=== PATIENT | male | born 1985 | race African-American/Black ===

== ENCOUNTER 2017-07-01 21:23 | Emergency (ER) | payer OTHER ==
[2017-07-01] MEDS ORDERED: Albuterol/Ipratropium 3.0-0.5 MG/3 ML Neb Soln NEB ONE (21:40)
--- NOTE | 2017-07-01 21:44 | EDM.PDOC ---
ED HPI GENERAL MEDICAL PROBLEM - General Chief Complaint: Respiratory Problem Stated Complaint: TROUBLE BREATHING/COUGH Time Seen by Provider: 07/01/17 21:31 - History of Present Illness INITIAL COMMENTS - FREE TEXT/NARRATIVE: HISTORY AND PHYSICAL: History of present illness: The patient is a 32-year-old male with no stated medical history who presents with complaints of being "sick" which involved vomiting and abdominal complaints which has subsided but occurred last week and 2 days of a dry cough that initially felt like there was mucus and congestion but now seems more dry and hacky. The patient says he has not had fevers or sore throat no runny nose or sinus congestion. He is now currently eating and drinking normally without abdominal complaints. He says his mouth feels dry from the coughing. He is a smoker of half a pack of tobacco a day but no drug use. He has no discrete chest pain and he did not get his flu shot this year. Review of systems: As per history of present illness and below otherwise all systems reviewed and negative. Past medical history: As per history of present illness and as reviewed below otherwise noncontributory. Surgical history: As per history of present illness and as reviewed below otherwise noncontributory. Social history: No reported history of drug or alcohol abuse. Family history: As per history of present illness and as reviewed below otherwise noncontributory. Physical exam: Gen.: Well-developed well-nourished man who is nontoxic and speaking without breathlessness. Vital signs have been reviewed by me HEENT: Atraumatic, normocephalic, pupils reactive, negative for conjunctival pallor or scleral icterus, mucous membranes moist, throat clear, neck supple, nontender, trachea midline. There is no cervical adenopathy or nuchal rigidity Lungs: Clear to auscultation there is no wheezing stridor or work of breathing, breath sounds equal bilaterally, chest nontender. Heart: S1S2, regular rate and rhythm no overt murmurs Abdomen: Soft, nondistended, nontender. NABS Pelvis: Deferred Genitourinary: Deferred. Rectal: Deferred. Extremities: Atraumatic, negative for cords or calf pain. Neurovascular unremarkable. Neuro: Awake, alert, oriented. Cranial nerves II through XII unremarkable. Cerebellum unremarkable. Motor and sensory unremarkable throughout. Exam nonfocal. Skin: Normal turgor no evidence of any diaphoresis or overt rashes or lesions Diagnostics: Influenza chest x-ray Therapeutics: Duo neb, spacer, spacer teaching Impression: acute Bronchitis Definitive disposition and diagnosis as appropriate pending reevaluation and review of above. chest area Pain Score (Numeric/FACES): 7 - Related Data Allergies Allergy/AdvReac Type Severity Reaction Status Date / Time No Known Allergies Allergy Verified 07/01/17 21:33 Home Meds: Home Meds . [No Known Home Meds] 09/19/15 [History] Past Medical History HEENT History: Reports: None Cardiovascular History: Reports: None Respiratory History: Reports: None Gastrointestinal History: Reports: None Genitourinary History: Reports: None Musculoskeletal History: Reports: None Neurological History: Reports: None Psychiatric History: Reports: None Endocrine/Metabolic History: Reports: None Hematologic History: Reports: None Immunologic History: Reports: None Oncologic (Cancer) History: Reports: None Dermatologic History: Reports: None - Infectious Disease History Infectious Disease History: Reports: None - Past Surgical History HEENT Surgical History: Reports: None Cardiovascular Surgical History: Reports: None Male Surgical History: Reports: None Musculoskeletal Surgical History: Reports: None Social & Family History - Family History Family Medical History: Noncontributory Cardiac: Reports: Hypertension Endocrine/Metabolic: Reports: Diabetes, type II - Tobacco Use Smoking Status *Q: Current Every Day Smoker Years of Tobacco use: 20 Packs/Tins Daily: 0.5 - Caffeine Use Caffeine Use: Reports: Tea - Recreational Drug Use Recreational Drug Use: Yes Drug Use in Last 12 Months: Yes Recreational Drug Type: Reports: Marijuana/Hashish Recreational Drug Use Frequency: Monthly ED ROS GENERAL - Review of Systems Review Of Systems: ROS reveals no pertinent complaints other than HPI. ED EXAM, GENERAL - Physical Exam Exam: See Below (See dictation) Course - Vital Signs Last Recorded V/S: Last Vital Signs Temp 36.9 C 07/01/17 21:33 Pulse 95 07/01/17 21:33 Resp 18 07/01/17 21:33 BP 124/86 07/01/17 21:33 Pulse Ox 95 07/01/17 21:33 - Orders/Labs/Meds Orders: Active Orders 24 hr Category Date Time Status RT Aerosol Therapy [RC] ASDIRECTED Care 07/01/17 21:40 Active Chest 2V [CR] Stat Exams 07/01/17 21:40 Taken Meds: Medications Discontinued Medications Generic Name Dose Route Start Last Admin Trade Name Talia PRN Reason Stop Dose Admin Albuterol/Ipratropium 3 ml 07/01/17 21:40 07/01/17 21:49 Duoneb 3.0-0.5 Mg/3 Ml NEB 07/01/17 21:41 3 ml ONETIME ONE Administration Departure - Departure Time of Disposition: 23:16 Disposition: Home, Self-Care 01 Condition: Good Clinical Impression: Bronchitis - Discharge Information Referrals: PCP,None [Primary Care Provider] - Forms: ED Department Discharge Additional Instructions: The following information is given to patients seen in the emergency department who are being discharged to home. This information is to outline your options for follow-up care. We provide all patients seen in our emergency department with a follow-up referral. The need for follow-up, as well as the timing and circumstances, are variable depending upon the specifics of your emergency department visit. If you don't have a primary care physician on staff, we will provide you with a referral. We always advise you to contact your personal physician following an emergency department visit to inform them of the circumstance of the visit and for follow-up with them and/or the need for any referrals to a consulting specialist. The emergency department will also refer you to a specialist when appropriate. This referral assures that you have the opportunity for followup care with a specialist. All of these measure are taken in an effort to provide you with optimal care, which includes your followup. Under all circumstances we always encourage you to contact your private physician who remains a resource for coordinating your care. When calling for followup care, please make the office aware that this follow-up is from your recent emergency room visit. If for any reason you are refused follow-up, please contact the [facility] emergency department at and ask to speak to the emergency department charge nurse. [facility] Primary care- Internal Medicine and Family [address] [address] Push hydration with Gatorade and water and juices and try to avoid caffeinated products. Please try to reduce or stop tobacco use. Use all medications as prescribed and please contact one of our clinic physicians or your provider in the next few days for follow-up care and reevaluation. Return to ER as needed and as discussed - My Orders Last 24 Hours: My Active Orders 07/01/17 21:40 RT Aerosol Therapy [RC] ASDIRECTED Chest 2V [CR] Stat - Assessment/Plan Last 24 Hours: My Active Orders 07/01/17 21:40 RT Aerosol Therapy [RC] ASDIRECTED Chest 2V [CR] Stat
[2017-07-02 00:20] VITALS: BP 128/80
--- NOTE | 2017-07-03 10:53 | CR ---
EXAM DATE: 07/01/17 PATIENT'S AGE: 32 Patient: LEATHA DOLAN Facility: [place], [place] Site . Site : 1985 Study: XRay Chest [id number]/6/2018 10:32:30 PM Ordering Physician: Jesus Bustos Final Report: INDICATION: Chest pain, shortness of breath. TECHNIQUE: Chest radiograph 2 views COMPARISON: None FINDINGS: Cardiovascular and mediastinum: The heart silhouette is normal in size and morphology. The mediastinum is normal in appearance. Lungs and pleural spaces: Both lungs are unremarkable in appearance. No sign of pleural effusion seen. No pneumothorax is identified. Bones and soft tissues: No significant findings. IMPRESSION: 1. No acute cardiopulmonary disease is seen. Dictated by Bart Zelaya MD @ 07/01/2017 11:02:28 PM Dictated by: Bart Zelaya MD @ 07/01/2017 23:02:33 (Electronic Signature) Report Signed by Proxy. STEVEN
== END 2017-07-01 23:30 | disposition home or self-care (01) ==
LOC: MW.ED 21:23
DX: J20.9 Acute bronchitis, unspecified (principal); F17.210 Nicotine dependence, cigarettes, uncomplicated
CPT/HCPCS: 71046; 71046-26; 87804; 94640; 99284; 99285-25

== ENCOUNTER 2017-12-07 14:36 | Emergency (ER) | payer OTHER ==
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
--- NOTE | 2017-12-07 15:50 | CR ---
EXAMINATION: Right shoulder HISTORY: Pain COMPARISON: None TECHNIQUE: 3 views FINDINGS: Moderate acromioclavicular osteoarthritic changes are noted. Bone mineralization and joint spaces appear preserved. No fracture or acute osseous abnormality. IMPRESSION: Acromioclavicular osteoarthritic changes without acute osseous abnormality.
[2017-12-07 16:37] VITALS: BP 127/86
== END 2017-12-07 16:34 | disposition home or self-care (01) ==
LOC: MW.ED 14:36
DX: S49.91XA Unspecified injury of right shoulder and upper arm, initial encounter (principal); E11.9 Type 2 diabetes mellitus without complications; F17.210 Nicotine dependence, cigarettes, uncomplicated; X50.9XXA Other and unspecified overexertion or strenuous movements or postures, initial encounter
CPT/HCPCS: 73030-26-RT; 73030-RT; 99283

== ENCOUNTER 2018-07-08 15:41 | Emergency (ER) | payer OTHER ==
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
[2018-07-08 17:03] VITALS: BP 146/101
--- NOTE | 2018-07-09 20:24 | CR ---
EXAM DATE: 07/08/18 PATIENT'S AGE: 33 Patient: LEATHA DOLAN Facility: [place], [place] Site . Site : 1985 Study: XRay Extremity Right hand [id number] 4:27:19 PM Ordering Physician: Doctor Antony Final Report: Indication: Pain. Technique: Three views of the right hand were obtained. Comparison: None Findings: No acute fracture or subluxation is identified. The joint spaces are well maintained. Impression: No acute fracture. Dictated by Annabel Knox MD @ Jul 08 2018 4:31PM (Electronic Signature) Report Signed by Proxy. STEVEN
== END 2018-07-08 17:00 | disposition home or self-care (01) ==
LOC: MW.ED 15:41
DX: S60.221A Contusion of right hand, initial encounter (principal); V47.6XXA Car passenger injured in collision with fixed or stationary object in traffic accident, initial encounter
CPT/HCPCS: 73120-26-RT; 73120-RT; 99283